=== PATIENT | male | born 1970 | race Caucasian/White ===

== ENCOUNTER → 2017-11-24 | Outpatient (CLI) | payer BC ==
[~2017-11-24] MED LIST: ACETAMINOPHEN-1 EAC1 PO; ASPIR-LOW81 MG; BRILINTA90 MG PO; CIPROFLOXACIN500 M1 PO; COREG6.25 M1 PO; CYCLOBENZAPRINE10 MG PO; LIPITOR20 MG PO; LIPITOR80 MG PO; LISINOPRIL5 MG PO; METRONIDAZOLE500 MG PO; NOHOMEMEDS; OMNICEF300 MG PO; OXYCODONE-APAP1 EAC6 PO; PLAVIX75 MG PO; PREDNISONE1 MG PO; PROTONIX40 MG PO; SIMVASTATIN20 MG; ULTRAM50 MG PO; ZANTAC150 MG PO
== END | disposition home or self-care (01) ==
LOC: RAD 17:28
DX: M79.652 Pain in left thigh (principal); M79.89 Other specified soft tissue disorders
CPT/HCPCS: 93971